=== PATIENT | male | born 1975 | race Two or more races ===

== ENCOUNTER 2021-08-24 09:43 | Outpatient (CLI) | payer OTHER ==
[~2021-08-24 09:43] MED LIST: CENTRUM CH1 TAB.CHEW PO; SYNTHROID50 MCG PO
== END 2021-08-24 09:45 | disposition home or self-care (01) ==
LOC: LAB 09:43
PROVIDERS: ATTEND Internal Medicine Cardiovascular Disease
DX: Z20.828 Contact with and (suspected) exposure to other viral communicable diseases (principal); I10 Essential (primary) hypertension